=== PATIENT | female | born 1965 | race Caucasian/White ===

== ENCOUNTER → 2018-07-30 11:24 | Outpatient (CLI) | payer OTHER, SELFPAY ==
--- NOTE | 2018-07-30 | DI.MG.S_ITS ---
BILATERAL DIGITAL SCREENING MAMMOGRAM 3D/2D WITH CAD: 07/30/2018 CLINICAL: Routine screening. Comparison is made to exams dated: 07/26/2017 mammogram, 05/03/2016 mammogram - [facility], and 10/06/2014 mammogram - [facility]. The tissue of both breasts is heterogeneously dense. This may lower the sensitivity of mammography. Current study was also evaluated with a Computer Aided Detection (CAD) system. No significant masses, calcifications, or other findings are seen in either breast. There has been no significant interval change. IMPRESSION: NEGATIVE There is no mammographic evidence of malignancy. A 1 year screening mammogram is recommended. This exam was interpreted at Station ID: [id number]. NOTE: For mammograms, a report in lay terms will be sent to the patient. Approximately 15% of breast malignancies will not be visualized mammographically. In the management of a palpable breast mass, a negative mammogram must not discourage biopsy of a clinically suspicious lesion. Electronically Signed By: Gerardo vasquez/ediht:07/30/2018 12:08:28 letter sent: Normal Exam ACR BI-RADS Category 1: Negative 3341F
== END ==
PROVIDERS: Family Provider Family Medicine; PCP Family Medicine; Visit Provider Family Medicine
DX: Z12.31 Encounter for screening mammogram for malignant neoplasm of breast (principal)
CPT/HCPCS: 77063; 77067

== ENCOUNTER → 2019-10-26 10:47 | Outpatient (CLI) | payer OTHER, SELFPAY ==
--- NOTE | 2019-10-26 | DI.MG.S_ITS ---
BILATERAL DIGITAL SCREENING MAMMOGRAM 3D/2D WITH CAD: 10/26/2019 CLINICAL: Routine screening. Comparison is made to exams dated: 07/30/2018 mammogram, 07/26/2017 mammogram, and 05/03/2016 mammogram - [facility]. The tissue of both breasts is heterogeneously dense. This may lower the sensitivity of mammography. Current study was also evaluated with a Computer Aided Detection (CAD) system. No significant masses, calcifications, or other findings are seen in either breast. There has been no significant interval change. IMPRESSION: NEGATIVE There is no mammographic evidence of malignancy. A 1 year screening mammogram is recommended. This exam was interpreted at Station ID: [id number]. NOTE: For mammograms, a report in lay terms will be sent to the patient. Approximately 15% of breast malignancies will not be visualized mammographically. In the management of a palpable breast mass, a negative mammogram must not discourage biopsy of a clinically suspicious lesion. Electronically Signed By: Gerardo vasquez/edith:10/28/2019 08:01:36 letter sent: Normal Exam ACR BI-RADS Category 1: Negative 3341F
== END ==
PROVIDERS: Family Provider Family Medicine; PCP Family Medicine; Referring Provider Family Medicine; Visit Provider Family Medicine
DX: Z12.31 Encounter for screening mammogram for malignant neoplasm of breast (principal)
CPT/HCPCS: 77063; 77067

== ENCOUNTER → 2021-01-04 11:14 | Outpatient (CLI) | payer OTHER, SELFPAY ==
--- NOTE | 2021-01-04 | DI.MG.S_ITS ---
BILATERAL DIGITAL SCREENING MAMMOGRAM 3D/2D WITH CAD: 01/04/2021 CLINICAL: Routine screening. Comparison is made to exams dated: 10/26/2019 mammogram, 07/30/2018 mammogram, and 07/26/2017 mammogram - [facility]. The tissue of both breasts is heterogeneously dense. This may lower the sensitivity of mammography. Current study was also evaluated with a Computer Aided Detection (CAD) system. No significant masses, calcifications, or other findings are seen in either breast. There has been no significant interval change. IMPRESSION: NEGATIVE There is no mammographic evidence of malignancy. A 1 year screening mammogram is recommended. This exam was interpreted at Station ID: [id number]. NOTE: For mammograms, a report in lay terms will be sent to the patient. Approximately 15% of breast malignancies will not be visualized mammographically. In the management of a palpable breast mass, a negative mammogram must not discourage biopsy of a clinically suspicious lesion. Electronically Signed By: Rosibel gooden/edith:01/04/2021 12:26:41 letter sent: Normal Exam ACR BI-RADS Category 1: Negative 3341F
== END ==
PROVIDERS: Family Provider Family Medicine; PCP Physician Assistant; Referring Provider Physician Assistant; Visit Provider Physician Assistant
DX: Z12.31 Encounter for screening mammogram for malignant neoplasm of breast (principal)
CPT/HCPCS: 77063; 77067

== ENCOUNTER → 2021-07-14 10:10 | Outpatient (CLI) | payer OTHER, SELFPAY ==
[2021-07-14 18:39] LABS: Alanine Aminotransferase 20 IU/L (<35); Albumin 4.4 g/dL (3.5-5.0); Albumin Globulin Ratio 1.4 (1.0-2.8); Alkaline Phosphatase 81 U/L (38-126); Aspartate Aminotransferase 26 IU/L (14-36); BUN Creatinine Ratio 21.4 (6-22); Bilirubin Total 0.7 mg/dL (0.2-1.3); Blood Urea Nitrogen 12 mg/dL (7-17); Calcium 9.5 mg/dL (8.4-10.2); Carbon Dioxide 27 mmol/L (22-32); Chloride 103 mmol/L (98-107); Cholesterol 195 mg/dL (140-199); Estimated Glomerular Filt Rate > 60 mL/min (>60); Globulin 3.1 g/dL (1.7-4.1); Glucose 105 mg/dL (70-100); HDL Cholesterol 82 mg/dL (40-60); HEMOLYSIS < 15 (0-50); LDL Cholesterol Calculated 101 mg/dL (<100); Potassium 4.4 mmol/L (3.4-5.1); Sodium 140 mmol/L (137-145); Total Protein 7.5 g/dL (6.3-8.2); Triglycerides 59 mg/dL (35-150)
[2021-07-14 18:48] LABS: Hemoglobin A1C% w Est Avg Glu 5.4 % (4.0-6.0)
[2021-07-14 18:53] LABS: Add Manual Diff / Slide Review NO; Basophils Absolute Auto 0 /uL (0-100); Basophils Percent Auto 0.9 % (0-2); Eosinophils Absolute Auto 300 /uL (0-450); Hematocrit 40.2 % (36-46); Hemoglobin 13.7 g/dL (12.0-16.0); Lymphocytes Absolute Auto 2000 /uL (1100-4500); Lymphocytes Percent Auto 41.3 % (25-40); Mean Corpuscular Hemoglobin 30.9 PG (26-34); Mean Corpuscular Volume 90.8 fL (80-100); Monocytes Absolute Auto 600 /uL (0-900); Monocytes Percent Auto 12.6 % (3-14); Neutrophils Absolute Auto 1900 /uL (1500-7000); Neutrophils Percent Auto 39.2 % (50-75); Platelet Count 305 X10^3/uL (150-400); Red Blood Cell Count 4.42 X10^6/uL (4.0-5.2); Red Cell Distribution Width 12.8 % (11.6-14.8); White Blood Cell Count 4.8 X10^3/uL (4.5-11.0)
[2021-07-14 19:10] LABS: TSH w/ Reflex to FT4 3.67 uIU/mL (0.47-4.68)
== END ==
PROVIDERS: Family Provider Family Medicine; PCP Physician Assistant; Visit Provider Physician Assistant
DX: R53.83 Other fatigue (principal); R73.9 Hyperglycemia, unspecified; U09.9 Post COVID-19 condition, unspecified; Z13.6 Encounter for screening for cardiovascular disorders
CPT/HCPCS: 80053; 80061; 83036; 84443; 85025

== ENCOUNTER → 2021-08-24 10:13 | Outpatient (CLI) | payer OTHER, SELFPAY ==
[2021-08-24 19:33] LABS: Add Manual Diff / Slide Review NO; Basophils Absolute Auto 0 /uL (0-100); Basophils Percent Auto 0.7 % (0-2); Eosinophils Absolute Auto 300 /uL (0-450); Eosinophils Percent Auto 5.9 % (2-4); Hematocrit 40.1 % (36-46); Hemoglobin 13.8 g/dL (12.0-16.0); Lymphocytes Absolute Auto 2600 /uL (1100-4500); Lymphocytes Percent Auto 47.6 % (25-40); Mean Corpuscular HGB Conc 34.3 % (30-36); Mean Corpuscular Volume 90.3 fL (80-100); Monocytes Absolute Auto 700 /uL (0-900); Monocytes Percent Auto 12.3 % (3-14); Neutrophils Absolute Auto 1800 /uL (1500-7000); Neutrophils Percent Auto 33.5 % (50-75); Platelet Count 342 X10^3/uL (150-400); Red Blood Cell Count 4.44 X10^6/uL (4.0-5.2); Red Cell Distribution Width 13.1 % (11.6-14.8); White Blood Cell Count 5.4 X10^3/uL (4.5-11.0)
== END ==
PROVIDERS: Family Provider Family Medicine; PCP Physician Assistant; Visit Provider Physician Assistant
DX: R79.9 Abnormal finding of blood chemistry, unspecified (principal)
CPT/HCPCS: 85025

== ENCOUNTER → 2021-08-25 08:57 | Outpatient (CLI) | payer OTHER, SELFPAY ==
[2021-08-26 06:56] LABS: Fecal Immunochemical Test Negative (Negative)
== END ==
PROVIDERS: Family Provider Family Medicine; PCP Physician Assistant; Visit Provider Physician Assistant
DX: Z12.11 Encounter for screening for malignant neoplasm of colon (principal); Z80.0 Family history of malignant neoplasm of digestive organs
CPT/HCPCS: 82274

== ENCOUNTER → 2022-01-08 09:28 | Outpatient (CLI) | payer OTHER, SELFPAY ==
--- NOTE | 2022-01-08 | DI.MG.S_ITS ---
BILATERAL DIGITAL SCREENING MAMMOGRAM 3D/2D WITH CAD: 01/08/2022 CLINICAL: Routine screening. Comparison is made to exams dated: 01/04/2021 mammogram, 10/26/2019 mammogram, and 07/30/2018 mammogram - [facility]. Both breasts are heterogeneously dense, which may obscure small masses (category c / 51-75% glandular tissue). Current study was also evaluated with a Computer Aided Detection (CAD) system. No significant masses, calcifications, or other findings are seen in either breast. There has been no significant interval change. IMPRESSION: NEGATIVE There is no mammographic evidence of malignancy. A 1 year screening mammogram is recommended. Based on the Tyrer Cuzick model (a risk assessment model) the patient's lifetime risk is 9.6% and her 10 year risk is 2.9%. According to the ACR, ACS, and NCCN guidelines, an annual breast MRI exam along with mammogram is recommended if the patient's lifetime risk is 20% or greater. This exam was interpreted at Station ID: [id number]. NOTE: For mammograms, a report in lay terms will be sent to the patient. Approximately 15% of breast malignancies will not be visualized mammographically. In the management of a palpable breast mass, a negative mammogram must not discourage biopsy of a clinically suspicious lesion. Electronically Signed By: Ravinder rowland/edith:01/10/2022 08:22:35 letter sent: Normal Exam ACR BI-RADS Category 1: Negative 3341F
== END ==
PROVIDERS: Family Provider Family Medicine; PCP Physician Assistant; Referring Provider Physician Assistant; Visit Provider Physician Assistant
DX: Z12.31 Encounter for screening mammogram for malignant neoplasm of breast (principal)
CPT/HCPCS: 77063; 77067

== ENCOUNTER → 2022-07-05 08:49 | Outpatient (CLI) | payer OTHER, SELFPAY ==
[2022-07-05 19:53] LABS: Add Manual Diff / Slide Review NO; Basophils Absolute Auto 0 /uL (0-100); Basophils Percent Auto 0.7 % (0-2); Eosinophils Absolute Auto 300 /uL (0-450); Eosinophils Percent Auto 5.2 % (2-4); Hematocrit 38.3 % (36-46); Hemoglobin 13.2 g/dL (12.0-16.0); Lymphocytes Absolute Auto 2500 /uL (1100-4500); Lymphocytes Percent Auto 51.9 % (25-40); Mean Corpuscular HGB Conc 34.6 % (30-36); Mean Corpuscular Hemoglobin 31.2 PG (26-34); Mean Corpuscular Volume 90.1 fL (80-100); Monocytes Absolute Auto 600 /uL (0-900); Neutrophils Absolute Auto 1400 /uL (1500-7000); Neutrophils Percent Auto 29.2 % (50-75); Platelet Count 327 X10^3/uL (150-400); Red Blood Cell Count 4.25 X10^6/uL (4.0-5.2); Red Cell Distribution Width 12.4 % (11.6-14.8); White Blood Cell Count 4.8 X10^3/uL (4.5-11.0)
[2022-07-05 20:07] LABS: Alanine Aminotransferase 30 IU/L (<35); Albumin Globulin Ratio 1.3 (1.0-2.8); Alkaline Phosphatase 78 U/L (38-126); Aspartate Aminotransferase 28 IU/L (14-36); BUN Creatinine Ratio 18.3 (6-22); Bilirubin Total 0.5 mg/dL (0.2-1.3); Blood Urea Nitrogen 11 mg/dL (7-17); Carbon Dioxide 29 mmol/L (22-32); Chloride 103 mmol/L (98-107); Estimated Glomerular Filt Rate > 60 mL/min (>60); Globulin 3.1 g/dL (1.7-4.1); Glucose 89 mg/dL (70-100); HEMOLYSIS < 15 (0-50); Potassium 4.1 mmol/L (3.4-5.1); Sodium 139 mmol/L (137-145); Total Protein 7.1 g/dL (6.3-8.2)
[2022-07-05 20:39] LABS: TSH w/ Reflex to FT4 2.61 uIU/mL (0.47-4.68)
== END ==
PROVIDERS: Family Provider Family Medicine; PCP Physician Assistant; Visit Provider Physician Assistant
DX: R53.83 Other fatigue (principal); R79.9 Abnormal finding of blood chemistry, unspecified
CPT/HCPCS: 80053; 84443; 85025

== ENCOUNTER → 2022-07-26 11:37 | Outpatient (CLI) | payer OTHER, SELFPAY ==
[2022-07-26 20:26] LABS: Hematocrit 37.8 % (36-46); Mean Corpuscular HGB Conc 34.6 % (30-36); Mean Corpuscular Hemoglobin 31.4 PG (26-34); Mean Corpuscular Volume 90.9 fL (80-100); Platelet Count 295 X10^3/uL (150-400); Red Blood Cell Count 4.15 X10^6/uL (4.0-5.2); Red Cell Distribution Width 13.1 % (11.6-14.8); White Blood Cell Count 5.1 X10^3/uL (4.5-11.0)
[2022-07-26 21:30] LABS: Neutrophils Absolute Manual 2091 /uL (3000-5900); RBC Morphology Normal Morphology; Total Cells Counted 100
== END ==
PROVIDERS: Family Provider Family Medicine; PCP Physician Assistant; Visit Provider Physician Assistant
DX: R79.9 Abnormal finding of blood chemistry, unspecified (principal)
CPT/HCPCS: 85025

== ENCOUNTER → 2023-04-08 10:51 | Outpatient (CLI) | payer OTHER, SELFPAY ==
--- NOTE | 2023-04-08 | DI.MG.S_ITS ---
BILATERAL DIGITAL SCREENING MAMMOGRAM 3D/2D WITH CAD: 04/08/2023 CLINICAL: Routine screening. Comparison is made to exams dated: 01/08/2022 mammogram, 01/04/2021 mammogram, and 10/26/2019 mammogram - [facility]. Both breasts are heterogeneously dense, which may obscure small masses (category c / 51-75% glandular tissue). Current study was also evaluated with a Computer Aided Detection (CAD) system. No significant masses, calcifications, or other findings are seen in either breast. There has been no significant interval change. IMPRESSION: NEGATIVE There is no mammographic evidence of malignancy. A 1 year screening mammogram is recommended. Based on the Tyrer Cuzick model (a risk assessment model) the patient's lifetime risk is 9.5% and her 10 year risk is 3.1%. According to the ACR, ACS, and NCCN guidelines, an annual breast MRI exam along with mammogram is recommended if the patient's lifetime risk is 20% or greater. This exam was interpreted at Station ID: [id number]. NOTE: For mammograms, a report in lay terms will be sent to the patient. Approximately 15% of breast malignancies will not be visualized mammographically. In the management of a palpable breast mass, a negative mammogram must not discourage biopsy of a clinically suspicious lesion. Electronically Signed By: Mirela stoddard/edith:04/10/2023 13:19:28 letter sent: Normal Exam ACR BI-RADS Category 1: Negative 3341F
[2023-04-08 12:17] LABS: Hematocrit 37.7 % (36-46); Hemoglobin 12.8 g/dL (12.0-16.0); Mean Corpuscular Hemoglobin 30.9 PG (26-34); Platelet Count 295 X10^3/uL (150-400); Red Blood Cell Count 4.15 X10^6/uL (4.0-5.2); Red Cell Distribution Width 13.6 % (11.6-14.8); White Blood Cell Count 6.6 X10^3/uL (4.5-11.0)
[2023-04-08 12:49] LABS: Alanine Aminotransferase 16 IU/L (<35); Albumin 4.2 g/dL (3.5-5.0); Albumin Globulin Ratio 1.3 (1.0-2.8); Alkaline Phosphatase 80 U/L (38-126); Aspartate Aminotransferase 24 IU/L (14-36); BUN Creatinine Ratio 23.1 (6-22); Bilirubin Total 0.7 mg/dL (0.2-1.3); Blood Urea Nitrogen 12 mg/dL (7-17); Calcium 9.1 mg/dL (8.4-10.2); Carbon Dioxide 26 mmol/L (22-32); Chloride 104 mmol/L (98-107); Estimated Glomerular Filt Rate > 60 mL/min (>60); Globulin 3.3 g/dL (1.7-4.1); Glucose 97 mg/dL (70-100); HEMOLYSIS < 15 (0-50); Potassium 3.9 mmol/L (3.4-5.1); Sodium 138 mmol/L (137-145); Total Protein 7.5 g/dL (6.3-8.2)
[2023-04-08 13:23] LABS: Neutrophils Absolute Manual 3366 /uL (3000-5900); Total Cells Counted 100
[2023-04-08 13:40] LABS: RBC Morphology Normal Morphology
[2023-04-10 16:59] LABS: Hep C Virus Ab w/Reflex Quant NEGATIVE s/c (NEGATIVE)
== END ==
LOC: MAMMO 10:52
PROVIDERS: Family Provider Family Medicine; PCP Physician Assistant; Referring Provider Physician Assistant; Visit Provider Physician Assistant
DX: Z12.31 Encounter for screening mammogram for malignant neoplasm of breast (principal); R92.333 Mammographic heterogeneous density, bilateral breasts; D72.819 Decreased white blood cell count, unspecified; D70.9 Neutropenia, unspecified; Z11.59 Encounter for screening for other viral diseases
CPT/HCPCS: 36415; 77063; 77067; 80053; 85025; 86803

== ENCOUNTER → 2023-09-20 09:34 | Outpatient (CLI) | payer OTHER, SELFPAY ==
[2023-09-20 21:18] LABS: Cholesterol 234 mg/dL (140-199); Triglycerides 47 mg/dL (35-150)
[2023-09-20 21:42] LABS: HDL Cholesterol 113 mg/dL (40-60); LDL Cholesterol Calculated 112 mg/dL (<100)
[2023-09-20 21:44] LABS: TSH w/ Reflex to FT4 1.98 uIU/mL (0.47-4.68)
== END ==
PROVIDERS: Family Provider Family Medicine; PCP Family Medicine; Visit Provider Family Medicine
DX: Z13.29 Encounter for screening for other suspected endocrine disorder (principal); Z13.6 Encounter for screening for cardiovascular disorders; L85.3 Xerosis cutis
CPT/HCPCS: 80061; 84443

== ENCOUNTER → 2024-03-18 09:23 | Outpatient (CLI) | payer OTHER, SELFPAY ==
[2024-03-18 19:26] LABS: Alanine Aminotransferase 22 IU/L (<35); Albumin 4.3 g/dL (3.5-5.0); Albumin Globulin Ratio 1.4 (1.0-2.8); Alkaline Phosphatase 89 U/L (38-126); Aspartate Aminotransferase 32 IU/L (14-36); BUN Creatinine Ratio 22.4 (6-22); Blood Urea Nitrogen 15 mg/dL (7-17); Calcium 9.6 mg/dL (8.4-10.2); Carbon Dioxide 29 mmol/L (22-32); Chloride 103 mmol/L (98-107); Estimated Glomerular Filt Rate > 60 mL/min (>60); Globulin 3.1 g/dL (1.7-4.1); Glucose 107 mg/dL (70-100); HEMOLYSIS < 15 (0-50); Potassium 4.2 mmol/L (3.4-5.1); Sodium 137 mmol/L (137-145); Total Protein 7.4 g/dL (6.3-8.2)
[2024-03-18 19:42] LABS: Hemoglobin A1C% w Est Avg Glu 5.1 % (4.0-6.0)
== END ==
PROVIDERS: Family Provider Family Medicine; PCP Family Medicine; Visit Provider Family Medicine
DX: Z13.1 Encounter for screening for diabetes mellitus (principal); Z83.3 Family history of diabetes mellitus
CPT/HCPCS: 80053; 83036

== ENCOUNTER 2024-07-31 13:38 | Emergency (ER) | payer OTHER, SELFPAY ==
[2024-07-31] VITALS (11 sets, daily range): BP systolic 114–126; BP diastolic 71–84; PULSE 61–70; RESP 12–16; TEMP 36.6; O2SAT 91–99; BMI 22.4
--- NOTE | 2024-07-31 14:12 | EKG_ITS ---
[address] [address] Test Date: 2024-07-31 Pat Name: Daniella Pope Department: Room: Gender: Female [employer]: [employer] : 1965 Requested By: Order Number: [id number] Reading MD: Tommie Browne Measurements Intervals [place] Rate: 63 P: 27 MA: 160 QRS: 16 QRSD: 86 T: 24 QT: 424 QTc: 433 Interpretive Statements Normal sinus rhythm with sinus arrhythmia Electronically Signed On 07-31-2024 16:23:25 PDT by Tommie Browne
--- NOTE | 2024-07-31 14:30 | ED.SOB ---
HPI - SOB/Dyspnea General Chief Complaint: Shortness of Breath/Dyspnea Stated Complaint: sent by Dr alex, for heart issue Time Seen by Provider: 07/31/24 14:22 Source: patient Mode of arrival: Family Vehicle Limitations: no limitations History of Present Illness HPI Narrative: 59-year-old female sent over from PCP office today for concern for potential pulmonary embolism after starting estrogen progesterone patch for hormone replacement therapy on July 16. Patient reports shortness breath dyspnea on exertion that she did not have before since starting hormone replacement therapy. Patient was in a long-distance travel flight back in June going to [facility] to visit her daughter. She is now a social smoker former regular smoker. Patient denies leg pain leg swelling weight gain and active chest pain at this time. Other than what is stated 14 point review of system is negative. Related Data Home Medications Medication Instructions Recorded Confirmed estradiol 0.0375 mg/24 hr 1 patch transdermal 2XW 07/31/24 07/31/24 semiweekly transdermal patch (Lyllana) progesterone micronized 100 mg 100 mg PO QPM 07/31/24 07/31/24 capsule Previous Rx's Medication Instructions Recorded furosemide 40 mg tablet (Lasix) 40 mg PO DAILY #3 tabs 07/31/24 Allergies Allergy/AdvReac Type Severity Reaction Status Date / Time No Known Drug Allergies Allergy Verified 07/31/24 10:06 Review of Systems Review of Systems ROS Unobtainable: All systems reviewed & are unremarkable except as noted in HPI and below Patient History Medical History (Updated 07/31/24 @ 16:41 by Vamsi Camarena DO) PTSD (post-traumatic stress disorder) History of colon polyps Laceration of right lower leg (~09/06/17) Screening for lipid disorders Screening for HIV (human immunodeficiency virus) Encounter for screening for malignant neoplasm of cervix Family history of diabetes mellitus Surgical History (Updated 08/27/18 @ 11:45 by Dave Webster MD) Status post dilatation and curettage Status post surgery (03/28/14) Family History (Updated 07/05/21 @ 15:03 by Jazlyn Soriano CMA) Other Diabetes mellitus Social History (Updated 07/05/21 @ 15:07 by Jazlyn Soriano CMA) Smoking Status: Former smoker quit status: quit date established alcohol intake: current additional social history: tob: quit 1 yr ago etoh: 1-2 glasses every 3-4 dyas no other substances safe hot flashes at night. PTSD -- sister killed in a car accident that she herself was in. 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 No FHx of breast cancer 08/2023 Smoking Status: Former smoker Exam Narrative Exam Narrative: GENERAL: [59] year old patient appears stated age. Well-developed patient, in mild distress. HEAD: Atraumatic. Normocephalic. EYES: Pupils equal round and reactive. Extraocular motions intact. No scleral icterus. No injection or drainage. ENT: Nose without bleeding, purulent drainage. Throat without erythema, tonsillar hypertrophy or exudate. Airway patent. NECK: Trachea midline. Non tender CARDIOVASCULAR: Regular rate and rhythm without murmurs, gallops, or rubs. RESPIRATORY: Clear to auscultation. Breath sounds equal bilaterally. No wheezes, rales, or rhonchi. GASTROINTESTINAL: Abdomen soft, non-tender, nondistended. EXTREMITIES: No edema or joint tenderness. BACK: Nontender without deformity or crepitance. No flank tenderness. NEURO: AOx3. SKIN: No rash or erythema of visible areas Initial Vital Signs Initial Vital Signs: Vital Signs Temperature 97.9 F 07/31/24 14:11 Pulse Rate 68 07/31/24 14:11 Respiratory Rate 16 07/31/24 14:11 Blood Pressure 114/71 07/31/24 14:11 Pulse Oximetry 99 07/31/24 14:11 Oxygen Delivery Method Room Air 07/31/24 14:11 Course Orders Ordered: ED Orders 07/31/24 14:12 EKG-12 Lead Stat Measure peak expiratory flow STAT RT Consult Eval and Treat STAT 07/31/24 14:33 CT angio chest PE protocol Stat 07/31/24 15:00 Complete Blood Count AUTO DIFF Stat Comprehensive Metabolic Panel Stat Lactate (Lactic Acid) Stat NT-proBNP (BNP-Adult 18+) Stat Prothrombin Time INR Stat Troponin I Stat Vital Signs Vital signs: Vital Signs - 8 hr 07/31/24 14:11 Temperature 97.9 F Pulse Rate 68 Respiratory Rate 16 Blood Pressure 114/71 Pulse Oximetry 99 Oxygen Delivery Method Room Air MDM - SOB/Dyspnea Lab Data 07/31/24 15:00 07/31/24 15:00 Labs: Lab Results 07/31/24 Range/Units 15:00 WBC 5.8 (4.5-11.0) X10^3/uL RBC 4.41 (4.0-5.2) X10^6/uL Hgb 13.8 (12.0-16.0) g/dL Hct 40.8 (36-46) % MCV 92.6 (80-100) fL MCH 31.3 (26-34) PG MCHC 33.8 (30-36) % RDW 12.6 (11.6-14.8) % Plt Count 333 (150-400) X10^3/uL Neut % (Auto) 51.9 (50-75) % Lymph % (Auto) 33.2 (25-40) % [place] % (Auto) 11.6 (3-14) % Eos % (Auto) 2.6 (2-4) % Baso % (Auto) 0.7 (0-2) % Neut # (Auto) 3000 (5436-3192) /uL Lymph # (Auto) 1900 (7035-2586) /uL [place] # (Auto) 700 (0-900) /uL Eos # (Auto) 200 (0-450) /uL Baso # (Auto) 0 (0-100) /uL PT 11.4 (9.4-12.5) SECONDS INR 1.0 (0.9-1.3) Sodium 138 (137-145) mmol/L Potassium 4.1 (3.4-5.1) mmol/L Chloride 102 (98-107) mmol/L Carbon Dioxide 27 (22-32) mmol/L BUN 14 (7-17) mg/dL Creatinine 0.64 (0.52-1.04) mg/dL Estimated GFR > 60 (>60) mL/min BUN/Creatinine Ratio 21.9 (6-22) Glucose 100 H (70-99) mg/dL Lactate 0.7 (0.7-2.1) mmol/L Calcium 9.8 (8.4-10.2) mg/dL Total Bilirubin 0.6 (0.2-1.3) mg/dL AST 33 (14-36) IU/L ALT 26 (<35) IU/L Alkaline Phosphatase 71 (38-126) U/L Total Protein 7.6 (6.3-8.2) g/dL Albumin 4.5 (3.5-5.0) g/dL Globulin 3.1 (1.7-4.1) g/dL Albumin/Globulin Ratio 1.5 (1.0-2.8) Imaging Data Chest x-ray: Radiologist's Impression: [facility] XRay Report Signed Patient: Daniella Pope MR#: [id number] : 1965 Acct:[id number] Age/Sex: 59 / F Date of Service: 07/31/24 Loc: [facility] Accession Number: [id number] Procedure: XR chest 2V Ordering Provider: Dave Alex MD PROCEDURE: XR CHEST 2V INDICATIONS: ANDREWS onset after start HRT TECHNIQUE: 2 views of the chest were acquired. COMPARISON: [facility] ([facility]), , XR CHEST 2V, 07/05/2022, 8:30. FINDINGS AND IMPRESSION: No dense airspace disease. No pleural effusions. Normal heart size. Degenerative osseous changes. Dictated by: Sergei Christine M.D. on 07/31/2024 at 13:11 Approved by: Sergei Christine M.D. on 07/31/2024 at 13:12 CT scan - chest: Radiologist's Impression: [place] [address] CT Scan Report Signed Patient: Daniella Pope MR#: [id number] : 1965 Acct:[id number] Age/Sex: 59 / F Date of Service: 07/31/24 Loc: ED Accession Number: [id number] Procedure: CT angio chest PE protocol Ordering Provider: Vamsi Camarena D.O. PROCEDURE: CT ANGIO CHEST PE PROTOCOL INDICATIONS: chest pain/sob/ andrews/ started hrt TECHNIQUE: After the administration of intravenous contrast, 2 mm thick sections acquired from the pulmonary apices to the posterior costophrenic angles. 3-dimensional maximum intensity projection (MIP) coronal and sagittal reformats were then acquired through the thorax. For radiation dose reduction, the following was used: automated exposure control, adjustment of mA and/or kV according to patient size. COMPARISON: None. FINDINGS: Image quality: Diagnostic. Pulmonary arteries: Pulmonary arteries are prominent in size, and demonstrate no intraluminal filling defects to suggest central pulmonary embolism. Lower Neck: No enlarged lymph nodes. Thyroid: No thyroid nodules which require sonographic follow up, per consensus guidelines. Axillae: No enlarged lymph nodes. Chest Wall: Unremarkable. Bones: No aggressive appearing bony lesions. Lungs and Pleura: No pneumothorax or pleural effusions. 3 mm solid nodule is seen in posterior lateral aspect of right upper lobe adjacent to the major fissure series 5, image 104. No consolidation or suspicious nodules. Dependent atelectasis in posterior aspect of bilateral lung vale are seen. Subtle hazy ground-glass opacities are noted in posterior aspect of bilateral lower lobes. Heart: Heart size is enlarged. No pericardial effusion. Thoracic Vessels: No aortic aneurysm. Mediastinum and Trice: No enlarged lymph nodes. Esophagus: No wall thickening. No hiatal hernia. Upper Abdomen: Visualized upper abdomen solid organs and bowel loops appear normal. IMPRESSION: 1. No pulmonary embolus. No thoracic aortic aneurysm or gross dissection. Prominent size of main pulmonary artery which can be seen associated with pulmonary vascular hypertension. 2. Dependent atelectasis and suggestion of mild pulmonary edema in posterior aspect of bilateral lower lobes. No focal infiltrate, pleural effusion or pneumothorax. 3 mm solid nodule is seen in right upper lobe as above, likely represent benign process. Follow-up CT chest in 12 months can be done for evaluation of stability. 3. No mediastinal or hilar lymphadenopathy. Cardiomegaly, no pericardial effusion. Dictated by: Chau Nuno M.D. on 07/31/2024 at 15:49 Approved by: Chau Nuno M.D. on 07/31/2024 at 15:57 ECG Data Interpretation: NSR HR 63 OR 160 QRS [address]-t wave change No previous EKG to compare against MDM Narrative Medical decision making narrative: All lab work, vital signs, nurse triage note, medication list and previous ER visits all reviewed. CT scan showed no PE no thoracic aortic aneurysm or gross dissection but there was prominent size of the main pulmonary artery which can be seen with pulmonary vascular hypertension. Dependent atelectasis and suggestive of mild pulmonary edema in the posterior aspect of bilateral lower lobes. No focal infiltrates pleural effusion or pneumothorax. 3 mm solid nodule seen in the right upper lobe likely representing a a benign process but to follow up with a CT chest in 12 months. No mediastinal hilar lymphadenopathy part but cardiomegaly but no green party pericardial effusion. Differential diagnosis include PE, dissection, aneursym, pneumonia, and pneumothorax. Patient given Lasix here and on discharge home then to follow up with PCP in 1-2 weeks for re-evaluation Discharge Plan Departure Patient Disposition: Home Clinical Impression: Hypertensive pulmonary vascular disease, Lung nodule Instructions: DI for Pulmonary Arterial Hypertension-Adult Activity Restrictions/Additional Instructions: Return with new or worsening symptoms. Please follow up with your PCP in 1-2 weeks regarding pulmonary vascular hypertension and lung nodule in the right upper lobe. And to take medicines as directed. Prescriptions: New furosemide [Lasix] 40 mg tablet 40 mg PO DAILY Qty: 3 0RF No Action estradiol [Lyllana] 0.0375 mg/24 hr patch semiweekly 1 patch transdermal 2XW Rx Instructions: apply 1 patch for 3 days alternating with 1 patch for 4 days each week for 3 wks per 4-wk cycle progesterone micronized 100 mg capsule 100 mg PO QPM Rx Instructions: off 7 days; repeat cycle Referrals: Devora Coles MD [Primary Care Provider] - Stand Alone Forms: Patient Portal/API/Survey
--- NOTE | 2024-07-31 14:33 | DI.CT.S_ITS ---
PROCEDURE: CT ANGIO CHEST PE PROTOCOL INDICATIONS: chest pain/sob/ andrews/ started hrt TECHNIQUE: After the administration of intravenous contrast, 2 mm thick sections acquired from the pulmonary apices to the posterior costophrenic angles. 3-dimensional maximum intensity projection (MIP) coronal and sagittal reformats were then acquired through the thorax. For radiation dose reduction, the following was used: automated exposure control, adjustment of mA and/or kV according to patient size. COMPARISON: None. FINDINGS: Image quality: Diagnostic. Pulmonary arteries: Pulmonary arteries are prominent in size, and demonstrate no intraluminal filling defects to suggest central pulmonary embolism. Lower Neck: No enlarged lymph nodes. Thyroid: No thyroid nodules which require sonographic follow up, per consensus guidelines. Axillae: No enlarged lymph nodes. Chest Wall: Unremarkable. Bones: No aggressive appearing bony lesions. Lungs and Pleura: No pneumothorax or pleural effusions. 3 mm solid nodule is seen in posterior lateral aspect of right upper lobe adjacent to the major fissure series 5, image 104. No consolidation or suspicious nodules. Dependent atelectasis in posterior aspect of bilateral lung vale are seen. Subtle hazy ground-glass opacities are noted in posterior aspect of bilateral lower lobes. Heart: Heart size is enlarged. No pericardial effusion. Thoracic Vessels: No aortic aneurysm. Mediastinum and Trice: No enlarged lymph nodes. Esophagus: No wall thickening. No hiatal hernia. Upper Abdomen: Visualized upper abdomen solid organs and bowel loops appear normal. IMPRESSION: 1. No pulmonary embolus. No thoracic aortic aneurysm or gross dissection. Prominent size of main pulmonary artery which can be seen associated with pulmonary vascular hypertension. 2. Dependent atelectasis and suggestion of mild pulmonary edema in posterior aspect of bilateral lower lobes. No focal infiltrate, pleural effusion or pneumothorax. 3 mm solid nodule is seen in right upper lobe as above, likely represent benign process. Follow-up CT chest in 12 months can be done for evaluation of stability. 3. No mediastinal or hilar lymphadenopathy. Cardiomegaly, no pericardial effusion. Dictated by: Chau Nuno M.D. on 07/31/2024 at 15:49 Approved by: Chau Nuno M.D. on 07/31/2024 at 15:57
[2024-07-31 15:11] LABS: Add Manual Diff / Slide Review NO; Basophils Absolute Auto 0 /uL (0-100); Basophils Percent Auto 0.7 % (0-2); Eosinophils Absolute Auto 200 /uL (0-450); Eosinophils Percent Auto 2.6 % (2-4); Hematocrit 40.8 % (36-46); Hemoglobin 13.8 g/dL (12.0-16.0); Lymphocytes Absolute Auto 1900 /uL (1100-4500); Lymphocytes Percent Auto 33.2 % (25-40); Mean Corpuscular HGB Conc 33.8 % (30-36); Mean Corpuscular Hemoglobin 31.3 PG (26-34); Mean Corpuscular Volume 92.6 fL (80-100); Monocytes Absolute Auto 700 /uL (0-900); Monocytes Percent Auto 11.6 % (3-14); Neutrophils Absolute Auto 3000 /uL (1500-7000); Neutrophils Percent Auto 51.9 % (50-75); Platelet Count 333 X10^3/uL (150-400); Red Blood Cell Count 4.41 X10^6/uL (4.0-5.2); Red Cell Distribution Width 12.6 % (11.6-14.8); White Blood Cell Count 5.8 X10^3/uL (4.5-11.0)
[2024-07-31 15:19] LABS: Prothrombin Time 11.4 SECONDS (9.4-12.5)
[2024-07-31 15:27] LABS: Lactate (Lactic Acid) 0.7 mmol/L (0.7-2.1)
[2024-07-31 15:28] LABS: Alanine Aminotransferase 26 IU/L (<35); Albumin 4.5 g/dL (3.5-5.0); Albumin Globulin Ratio 1.5 (1.0-2.8); Alkaline Phosphatase 71 U/L (38-126); Aspartate Aminotransferase 33 IU/L (14-36); BUN Creatinine Ratio 21.9 (6-22); Bilirubin Total 0.6 mg/dL (0.2-1.3); Blood Urea Nitrogen 14 mg/dL (7-17); Calcium 9.8 mg/dL (8.4-10.2); Carbon Dioxide 27 mmol/L (22-32); Chloride 102 mmol/L (98-107); Estimated Glomerular Filt Rate > 60 mL/min (>60); Globulin 3.1 g/dL (1.7-4.1); Glucose 100 mg/dL (70-99); HEMOLYSIS 18 (0-50); Potassium 4.1 mmol/L (3.4-5.1); Sodium 138 mmol/L (137-145); Total Protein 7.6 g/dL (6.3-8.2)
[2024-07-31 15:40] LABS: NT-proBNP (BNP-Adult 18+) 42 pg/mL (<125); Troponin I < 0.012 ng/mL (0.01-0.034)
[2024-07-31] MEDS: FUROSEMIDE 40 MG/4 ML VIAL IV (17:17)
== END 2024-07-31 17:37 | disposition home or self-care (01) ==
PROVIDERS: Emergency Provider Family Medicine; Family Provider Family Medicine; PCP Family Medicine
DX: I27.20 Pulmonary hypertension, unspecified (principal); R91.1 Solitary pulmonary nodule; R07.9 Chest pain, unspecified
CPT/HCPCS: 36415; 71275; 80053; 83605; 83880; 84484; 85025; 85610; 93005; 96374; 99284; J1938

== ENCOUNTER → 2024-08-09 08:26 | Outpatient (CLI) | payer OTHER, SELFPAY ==
--- NOTE | 2024-08-09 08:27 | DI.MG.S_ITS ---
MM screening mammo BI: 08/09/2024. BI-RADS: 1 CLINICAL: 59-year old female for bilateral screening mammogram. Tyrer-Cuzick lifetime risk of 6.2%. No personal or first-degree family history of breast cancer. PRIOR EXAMS 04/08/2023, 01/08/2022, 01/04/2021, 10/26/2019, 07/30/2018, 07/26/2017, 05/03/2016, 10/06/2014. MAMMOGRAPHY TECHNIQUE: 2D and 3D (tomosynthesis) digital mammographic views obtained, with additional images as needed for full coverage. Current study was also evaluated with a Computer Aided Detection (CAD) system. DENSITY C. The breasts are heterogeneously dense, which may obscure small masses. MAMMOGRAPHY FINDINGS Bilateral: No suspicious mass, asymmetry, microcalcification, or other abnormality seen. IMPRESSION: * No evidence of malignancy. RECOMMENDATIONS Bilateral * Annual screening mammography. OVERALL ASSESSMENT CATEGORY BI-RADS-1: Negative. The [employer] recommends annual screening mammography beginning at age 40 for women with average risk of breast cancer. ELECTRONICALLY SIGNED: Gerardo Wilks M.D. on 08/09/2024 at 02:00:10 PM PT Interpreting Station ID: [id number]
== END ==
PROVIDERS: Family Provider Family Medicine; PCP Family Medicine; Referring Provider Family Medicine; Visit Provider Family Medicine
DX: Z12.31 Encounter for screening mammogram for malignant neoplasm of breast (principal); R92.333 Mammographic heterogeneous density, bilateral breasts
CPT/HCPCS: 77063; 77067

== ENCOUNTER → 2024-08-20 06:46 | Outpatient (CLI) | payer OTHER, SELFPAY ==
--- NOTE | 2024-08-20 06:47 | DI.ECHO.S_ITS ---
[facility]+ [facility] : : [address] : : [place] : : [address] : : Phone: [phone] Echocardiogram Report + + :Name: SANA REED Study Date: 08/20/2024 Height: 61 in : :Hospital ReadingLocation: Weight: 119 lb : : Gender: Female BSA: 1.5 m2 : :: 1965 Age: 59 yrs BP: 109/76 mmHg: :Reason For Study: DYPSNEA ON EXERTION : :Ordering Physician: YELITZA, : :LEONIDAS Performed By: Walter Shepherd : :Referring: LEONIDAS TORRE : + + Interpretation Summary Normal sinus rhythm. Normal LV size, wall thickness, wall motion and LV systolic function. EF is 60-65%. Moderate LA enlargement; otherwise normal chamber sizes. There is significant bowing of the interatrial septum towards the right atrium consistent with elevated LA pressure. No shunt based on color flow Doppler. No significant valvular abnormalities. No etiology of dyspnea identified. No prior study available for comparison. Procedure: A two-dimensional transthoracic echocardiogram with color flow and Doppler was performed. The study quality was technically good. There is no prior echocardiogram noted for this patient. The patient was in normal sinus rhythm during the exam. Left Ventricle: The left ventricle is normal in size. There is normal left ventricular wall thickness. There is no ventricular septal defect visualized. The ejection fraction is estimated to be 60-65%. There are no focal wall motion abnormalities. Diastolic parameters suggest a relaxation abnormality of the left ventricle, consistent with probable normal filling pressures. Right Ventricle: The right ventricle is normal in size and function. Atria: The left atrium is moderately dilated. Right atrial size is normal. The interatrial septum bows toward right atrium consistent with elevated left atrial pressure. Mitral Valve: The mitral valve leaflets appear normal. There is no evidence of stenosis, fluttering, or prolapse. There is trace mitral regurgitation. Aortic Valve: The aortic valve is trileaflet. The aortic valve opens well. No aortic regurgitation is present. Tricuspid Valve: The tricuspid valve leaflets are thin and pliable. There is trace tricuspid regurgitation. Pulmonic Valve: The pulmonic valve is not well seen, but is grossly normal. There is trace pulmonic regurgitation. Great Vessels: The aortic root is mildly dilated. The dimensions of the ascending aorta are normal. The pulmonary artery is normal size. The IVC is of normal diameter and collapses greater than 50% with a sniff. This suggests a low right atrial pressure of 3 mm Hg. Pericardium/ Pleura There is no pericardial effusion. There is no pleural effusion. MMode/2D Measurements & Calculations LVIDd: 4.8 cm LVOT diam: 2.0 cm LVIDs: 3.6 cm Ao root diam: 3.7 cm FS: 25.5 % asc Aorta Diam: 3.4 cm EPSS: 0.37 cm IVSd: 0.81 cm LVPWd: 0.75 cm LV hudson. diameter/BSA (cm/m^2): 3.2 LV sys. diameter/BSA (cm/m^2): 2.4 LA A2 area: 18.7 cm2 RA long axis: 4.6 cm LA A4 area: 20.1 cm2 RA area: 13.7 cm2 LA length (vol): 4.8 cm RA vol: 34.1 ml LA vol: 66.1 ml RA : 22.5 ml/m2 LA vol index: 43.6 ml/m2 IVC diam: 1.4 cm RVD1 (basal): 3.8 cm RVD2 (mid): 3.1 cm TAPSE: 2.9 cm Doppler Measurements & Calculations Ao V2 max: 118.8 cm/sec LVOT Max Bladimir: 76.7 cm/sec Ao V2 mean: 83.1 cm/sec LV V1 max P.4 mmHg Ao max P.6 mmHg LV V1 VTI: 17.6 cm Ao mean P.1 mmHg POONAM(I,D): 2.0 cm2 Ao V2 VTI: 26.6 cm POONAM(V,D): 2.0 cm2 sev ratio: 0.66 POONAM indexed to BSA (cm^2/m^2): 1.3 MV E max bladimir: 51.1 cm/sec TR max bladimir: 223.9 cm/sec MV A max bladimir: 64.7 cm/sec TR max P.1 mmHg MV E/A: 0.79 PA V2 max: 69.5 cm/sec Med Peak E' Bladimir: 7.1 cm/sec PA V2 mean: 43.7 cm/sec E/E' med: 7.1 PA mean P.89 mmHg Lat Peak E' Bladimir: 8.2 cm/sec PA pr(Accel): 46.5 mmHg E/E' lat: 6.3 E/e' average: 6.7 MV dec time: 0.11 sec SV(LVOT): 53.2 ml Electronically signed by: Alva Javed M.D. on [place] Physician:08/20/2024 11:42 PM
== END ==
PROVIDERS: PCP Family Medicine; Referring Provider Family Medicine; Visit Provider Family Medicine
DX: I77.89 Other specified disorders of arteries and arterioles (principal); R06.09 Other forms of dyspnea; I27.20 Pulmonary hypertension, unspecified; R53.83 Other fatigue
CPT/HCPCS: 93306

== ENCOUNTER 2024-09-19 08:10 | Emergency (ER) | payer OTHER, SELFPAY ==
--- NOTE | 2024-09-19 08:14 | ED.CHESTPAIN ---
HPI - Chest Pain General Chief Complaint: Chest Pain Stated Complaint: chest pain and upper back left arm pain Time Seen by Provider: 09/19/24 08:14 History of Present Illness HPI narrative: 51-year-old female history of hypertension, PTSD, allergies, polyps, family history of colon cancer, fatigue due to COVID, GERD, elevated blood sugars, neutropenia presents with epigastric midsternal chest pain to the back woke her up this morning at about 2:30 a.m. sharp constant pain rated as 4/10 at this time. She had a bowel movement earlier today denies nausea vomiting diarrhea constipation did report cough and congestion earlier in the week. She did take a Pepcid prior to arrival this morning and had [place] food last night. Other than what is stated 14 point review of system is negative. Related Data Previous Rx's ?Medication ?Instructions ?Recorded pantoprazole 40 mg tablet,delayed 40 mg PO DAILY #30 tabs 09/19/24 release (Protonix) Allergies Allergy/AdvReac Type Severity Reaction Status Date / Time No Known Drug Allergies Allergy Verified 09/09/24 07:59 Review of Systems Review of Systems ROS Unobtainable: All systems reviewed & are unremarkable except as noted in HPI and below Patient History Medical History (Updated 09/19/24 @ 11:30 by Vamsi Camarena DO) PTSD (post-traumatic stress disorder) History of colon polyps Laceration of right lower leg (~09/06/17) Screening for lipid disorders Screening for HIV (human immunodeficiency virus) Encounter for screening for malignant neoplasm of cervix Family history of diabetes mellitus Surgical History (Updated 08/27/18 @ 11:45 by Dave Webster MD) Status post dilatation and curettage Status post surgery (03/28/14) Family History (Updated 07/05/21 @ 15:03 by Jazlyn Soriano CMA) Other Diabetes mellitus Social History (Updated 07/05/21 @ 15:07 by Jazlyn Soriano CMA) Smoking Status: Former smoker quit status: quit date established alcohol intake: current additional social history: tob: quit 1 yr ago etoh: 1-2 glasses every 3-4 dyas no other substances safe hot flashes at night. PTSD -- sister killed in a car accident that she herself was in. 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 No FHx of breast cancer 08/2023 Exam Narrative Exam Narrative: GENERAL: [59] year old patient appears stated age. Well-developed patient, in mild distress. HEAD: Atraumatic. Normocephalic. EYES: Pupils equal round and reactive. Extraocular motions intact. No scleral icterus. No injection or drainage. ENT: Nose without bleeding, purulent drainage. Throat without erythema, tonsillar hypertrophy or exudate. Airway patent. NECK: Trachea midline. Non tender CARDIOVASCULAR: Regular rate and rhythm without murmurs, gallops, or rubs. RESPIRATORY: Clear to auscultation. Breath sounds equal bilaterally. No wheezes, rales, or rhonchi. GASTROINTESTINAL: Abdomen soft, non-tender, nondistended. EXTREMITIES: No edema or joint tenderness. BACK: Nontender without deformity or crepitance. No flank tenderness. NEURO: AOx3. SKIN: No rash or erythema of visible areas Initial Vital Signs Initial Vital Signs: Vital Signs Temperature 98.2 F 09/19/24 08:19 Pulse Rate 74 09/19/24 08:19 Respiratory Rate 16 09/19/24 08:19 Blood Pressure 158/86 H 09/19/24 08:19 Pulse Oximetry 98 09/19/24 08:19 Oxygen Delivery Method Room Air 09/19/24 08:19 Scores HEART Score Heart Score history: Slightly Suspicious Heart Score EKG: Normal Heart Score Age: 45-64 years old Heart Score risk factors: No known risk factors Heart Score troponin: < or = to normal limit Heart Score Total: 1 Course Orders Ordered: ED Orders 09/19/24 08:25 XR chest 1V Stat EKG-12 Lead Stat 09/19/24 08:32 CT abdomen pelvis w con Stat 09/19/24 08:43 Complete Blood Count AUTO DIFF Stat Comprehensive Metabolic Panel Stat Lipase Stat Magnesium Stat NT-proBNP (BNP-Adult 18+) Stat PTT Partial Thromboplastin Arnav Stat Prothrombin Time INR Stat Troponin & CK Cardiac Panel Stat 09/19/24 09:36 US abdomen limited Stat 09/19/24 10:47 Troponin I Stat Discontinued Medications Aspirin (Aspirin 81 Mg Chew Tab) 324 mg PO NOW ONE Stop: 09/19/24 08:26 Last Admin: 09/19/24 08:56 Dose: 324 mg Documented By: MIHAI Vital Signs Vital signs: Vital Signs - 8 hr 09/19/24 08:19 09/19/24 10:12 Temperature 98.2 F Pulse Rate 74 63 Respiratory Rate 16 14 Blood Pressure 158/86 H 121/78 Pulse Oximetry 98 99 Oxygen Delivery Method Room Air Room Air MDM - Chest Pain Lab Data 09/19/24 08:43 09/19/24 08:43 Labs: Lab Results 09/19/24 Range/Units 08:43 WBC 9.0 (4.5-11.0) X10^3/uL RBC 4.19 (4.0-5.2) X10^6/uL Hgb 13.2 (12.0-16.0) g/dL Hct 38.9 (36-46) % MCV 92.9 (80-100) fL MCH 31.5 (26-34) PG MCHC 33.9 (30-36) % RDW 13.1 (11.6-14.8) % Plt Count 313 (150-400) X10^3/uL Neut % (Auto) 63.9 (50-75) % Lymph % (Auto) 21.8 L (25-40) % [place] % (Auto) 11.2 (3-14) % Eos % (Auto) 2.5 (2-4) % Baso % (Auto) 0.6 (0-2) % Neut # (Auto) 5800 (7407-4159) /uL Lymph # (Auto) 2000 (8418-8919) /uL [place] # (Auto) 1000 H (0-900) /uL Eos # (Auto) 200 (0-450) /uL Baso # (Auto) 0 (0-100) /uL PT 11.1 (9.4-12.5) SECONDS INR 1.0 (0.9-1.3) APTT 32 (25.1-36.5) SECONDS Sodium 136 L (137-145) mmol/L Potassium 4.2 (3.4-5.1) mmol/L Chloride 104 (98-107) mmol/L Carbon Dioxide 23 (22-32) mmol/L BUN 14 (7-17) mg/dL Creatinine 0.70 (0.52-1.04) mg/dL Estimated GFR > 60 (>60) mL/min BUN/Creatinine Ratio 20.0 (6-22) Glucose 107 H (70-99) mg/dL Calcium 9.5 (8.4-10.2) mg/dL Magnesium 2.0 (1.6-2.3) mg/dL Total Bilirubin 0.5 (0.2-1.3) mg/dL AST 37 H (14-36) IU/L ALT 23 (<35) IU/L Alkaline Phosphatase 104 (38-126) U/L Total Creatine Kinase 470 H (30-135) U/L Troponin I < 0.012 (0.01-0.034) ng/mL NT-Pro-B Natriuret Pep 40 (<125) pg/mL Total Protein 7.7 (6.3-8.2) g/dL Albumin 4.5 (3.5-5.0) g/dL Globulin 3.2 (1.7-4.1) g/dL Albumin/Globulin Ratio 1.4 (1.0-2.8) Lipase 90 (23-300) U/L Imaging Data Chest x-ray: Radiologist's Impression: [address] [address] XRay Report Signed Patient: Daniella Pope MR#: [id number] : 1965 Acct:[id number] Age/Sex: 59 / F Date of Service: 09/19/24 Loc: ED Accession Number: [id number] Procedure: XR chest 1V Ordering Provider: Vamsi Camarena D.O. PROCEDURE: XR CHEST 1V INDICATIONS: Chest Pain TECHNIQUE: One view of the chest was acquired. COMPARISON: [facility] ([facility]), CR, XR CHEST 2V, 07/31/2024, 10:40. FINDINGS: Surgical changes and devices: None. Lungs and pleura: Lungs are clear. No pleural effusions or pneumothorax. Mediastinum: Mediastinal contours appear normal. Heart size is normal. Bones and chest wall: No suspicious bony lesions. Overlying soft tissues appear unremarkable. IMPRESSION: No acute cardiopulmonary abnormality is seen. CT scan - abdomen/pelvis: Radiologist's Impression: [address] [address] [address] Scan Report Signed Patient: Daniella Pope MR#: [id number] : 1965 Acct:[id number] Age/Sex: 59 / F Date of Service: 09/19/24 Loc: ED Accession Number: [id number] Procedure: CT abdomen pelvis w con Ordering Provider: Vamsi Camarena D.O. PROCEDURE: CT ABDOMEN PELVIS W CON INDICATIONS: epigastric pain radiating to back TECHNIQUE: After the administration of intravenous contrast, axial sections acquired from the lung bases to the pubic symphysis. Coronal and sagittal reformats were performed. For radiation dose reduction, the following was used: automated exposure control, adjustment of mA and/or kV according to patient size. COMPARISON: None. FINDINGS: Image quality: Diagnostic. Lower Chest: No esophageal wall edema and thickening concerning for esophagitis. Heart size is normal, no pericardial effusion. Bilateral lung bases are clear. ABDOMEN: Liver: No solid mass. Small well-circumscribed hypodensities are seen scattered in liver parenchyma. Gallbladder: Contracted gallbladder. Questionable gallbladder wall thickening. No calcified gallstones. Biliary ducts: No biliary dilation. Pancreas: No ductal dilation. Spleen: Size is within normal limits. Adrenal Glands: No adrenal nodules. Kidneys and Ureters: No hydronephrosis. No solid mass. No complex renal cystic lesion which requires follow up. Stomach and Bowel: There is distal gastric wall thickening particularly involving gastric pylorus. Proximal duodenal wall thickening is also seen. Mild fluid filling of the small bowel loops throughout abdomen with wall enhancement and borderline thickening concerning for enteritis. No colonic wall thickening. No abscess collection. Peritoneum: No abnormal intraperitoneal fluid. No free air. Ventral Wall: No significant ventral hernia. Abdominal Nodes: No retroperitoneal or mesenteric adenopathy by size criteria. Vessels: Aorta and inferior vena cava are normal in size. PELVIS: Pelvic Organs: Unremarkable. Bladder: No bladder wall thickening, accounting for underdistention. Pelvic Nodes: No enlarged lymph nodes. Miscellaneous: No inguinal hernias are seen. Bones: No aggressive osseous abnormality. IMPRESSION: 1. Finding is concerning for distal gastritis and enteritis. No evidence of bowel obstruction. No colonic wall thickening. No free fluid or free air. 2. Contracted gallbladder. No calcified gallstones. Questionable gallbladder wall thickening. Early acute cholecystitis cannot be entirely excluded, clinical correlation is recommended. No gross biliary ductal dilatation. 3. Distal esophageal wall thickening suggestive of mild esophagitis. US - abdomen: Radiologist's Impression: [address] [address] Ultrasound Report Signed Patient: Daniella Pope MR#: [id number] : 1965 Acct:[id number] Age/Sex: 59 / F Date of Service: 09/19/24 Loc: ED Accession Number: [id number] Procedure: US abdomen limited Ordering Provider: Vamsi Camarena D.O. PROCEDURE: US ABDOMEN LIMITED INDICATIONS: epigastric pain TECHNIQUE: Real-time scanning was performed of the abdominal and retroperitoneal organs, with image documentation. COMPARISON: None. FINDINGS: Liver: Liver is normal in size and homogeneous in echotexture. Gallbladder: There is no gallstones. Borderline gallbladder wall thickening. No pericholecystic fluid. No sonographic Banks's sign. Biliary ducts: Intrahepatic bile ducts are non-dilated. Extrahepatic bile duct caliber measures 3.7 mm. Normal is 6-7 mm or less in diameter, or 10 mm or less post-cholecystectomy. Pancreas: Visualized portions of the pancreas are sonographically normal. Miscellaneous: No free abdominal fluid. IMPRESSION: No gallstones. No sonographic evidence of acute cholecystitis. Questionable gallbladder wall thickening likely due to contraction. No biliary ductal dilatation. ECG Data Interpretation: Sinus David HR 58 [place] 168 QRS [address]-t wave change Unchanged from 07/31/24 MDM Narrative Medical decision making narrative: Vital signs, nurse triage note, medication list, previous ER visits, and all imaging studies reviewed. EKG shows sinus bradycardia heart rate [address] T wave changes. Troponin 2 sets normal. Chest x-ray showed no acute process. CT abdomen and pelvis showed findings concerning for distal gastritis and enteritis. No evidence of bowel obstruction no colonic wall thickening. No free fluid or free air. Contracted gallbladder. No calcified gallstone. Questionable gallbladder wall thickening. Distal esophageal wall thickening suggestive of mild esophagitis. Ultrasound showed no gallstones no evidence of acute cholecystitis questionable wall thickening likely due to contraction no ductal dilatation. Patient given Protonix here and on DC home. Differential diagnosis includes STEMI NSTEMI unstable angina GERD pancreatitis ulcer cholecystitis. Discharge Plan Departure Patient Disposition: Home Clinical Impression: Gastritis Qualifiers: Gastritis type: superficial Chronicity: acute Gastritis bleeding: without bleeding Qualified Code(s): K29.00 - Acute gastritis without bleeding Instructions: DI for Gastritis Activity Restrictions/Additional Instructions: Return with new or worsening symptoms. Take your medicines as directed. Follow up with PCP in 2-4 weeks if no improvement in symptoms. Prescriptions: New pantoprazole [Protonix] 40 mg tablet,delayed release (DR/EC) 40 mg PO DAILY Qty: 30 0RF Referrals: Devora Coles MD [Primary Care Provider, Family Practice] Stand Alone Forms: Patient Portal/API
[2024-09-19 08:19] VITALS: BP 158/86; PULSE 74; RESP 16; TEMP 36.8; O2SAT 98; BMI 22.4
--- NOTE | 2024-09-19 08:25 | EKG_ITS ---
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
--- NOTE | 2024-09-19 08:25 | DI.RAD.S_ITS ---
PROCEDURE: XR CHEST 1V INDICATIONS: Chest Pain TECHNIQUE: One view of the chest was acquired. COMPARISON: [facility] ([facility]), CR, XR CHEST 2V, 07/31/2024, 10:40. FINDINGS: Surgical changes and devices: None. Lungs and pleura: Lungs are clear. No pleural effusions or pneumothorax. Mediastinum: Mediastinal contours appear normal. Heart size is normal. Bones and chest wall: No suspicious bony lesions. Overlying soft tissues appear unremarkable. IMPRESSION: No acute cardiopulmonary abnormality is seen. Dictated by: Conor Hoffmann M.D. on 09/19/2024 at 8:56 Approved by: Conor Hoffmann M.D. on 09/19/2024 at 8:56
--- NOTE | 2024-09-19 08:32 | DI.CT.S_ITS ---
PROCEDURE: CT ABDOMEN PELVIS W CON INDICATIONS: epigastric pain radiating to back TECHNIQUE: After the administration of intravenous contrast, axial sections acquired from the lung bases to the pubic symphysis. Coronal and sagittal reformats were performed. For radiation dose reduction, the following was used: automated exposure control, adjustment of mA and/or kV according to patient size. COMPARISON: None. FINDINGS: Image quality: Diagnostic. Lower Chest: No esophageal wall edema and thickening concerning for esophagitis. Heart size is normal, no pericardial effusion. Bilateral lung bases are clear. ABDOMEN: Liver: No solid mass. Small well-circumscribed hypodensities are seen scattered in liver parenchyma. Gallbladder: Contracted gallbladder. Questionable gallbladder wall thickening. No calcified gallstones. Biliary ducts: No biliary dilation. Pancreas: No ductal dilation. Spleen: Size is within normal limits. Adrenal Glands: No adrenal nodules. Kidneys and Ureters: No hydronephrosis. No solid mass. No complex renal cystic lesion which requires follow up. Stomach and Bowel: There is distal gastric wall thickening particularly involving gastric pylorus. Proximal duodenal wall thickening is also seen. Mild fluid filling of the small bowel loops throughout abdomen with wall enhancement and borderline thickening concerning for enteritis. No colonic wall thickening. No abscess collection. Peritoneum: No abnormal intraperitoneal fluid. No free air. Ventral Wall: No significant ventral hernia. Abdominal Nodes: No retroperitoneal or mesenteric adenopathy by size criteria. Vessels: Aorta and inferior vena cava are normal in size. PELVIS: Pelvic Organs: Unremarkable. Bladder: No bladder wall thickening, accounting for underdistention. Pelvic Nodes: No enlarged lymph nodes. Miscellaneous: No inguinal hernias are seen. Bones: No aggressive osseous abnormality. IMPRESSION: 1. Finding is concerning for distal gastritis and enteritis. No evidence of bowel obstruction. No colonic wall thickening. No free fluid or free air. 2. Contracted gallbladder. No calcified gallstones. Questionable gallbladder wall thickening. Early acute cholecystitis cannot be entirely excluded, clinical correlation is recommended. No gross biliary ductal dilatation. 3. Distal esophageal wall thickening suggestive of mild esophagitis. Dictated by: Chau Nuno M.D. on 09/19/2024 at 9:05 Approved by: Chau Nuno M.D. on 09/19/2024 at 9:12
[2024-09-19 08:50] LABS: Add Manual Diff / Slide Review NO; Hematocrit 38.9 % (36-46); Hemoglobin 13.2 g/dL (12.0-16.0); Lymphocytes Absolute Auto 2000 /uL (1100-4500); Mean Corpuscular HGB Conc 33.9 % (30-36); Mean Corpuscular Hemoglobin 31.5 PG (26-34); Mean Corpuscular Volume 92.9 fL (80-100); Platelet Count 313 X10^3/uL (150-400)
[2024-09-19 08:56] LABS: INR 1.0 (0.9-1.3); Prothrombin Time 11.1 SECONDS (9.4-12.5)
[2024-09-19] MEDS: ASPIRIN 81 MG CHEW TAB 324 MG PO (08:56)
[2024-09-19 08:59] LABS: PTT Partial Thromboplastin Tim 32 SECONDS (25.1-36.5)
[2024-09-19 09:00] LABS: Alanine Aminotransferase 23 IU/L (<35); Albumin 4.5 g/dL (3.5-5.0); Albumin Globulin Ratio 1.4 (1.0-2.8); Alkaline Phosphatase 104 U/L (38-126); Blood Urea Nitrogen 14 mg/dL (7-17); Calcium 9.5 mg/dL (8.4-10.2); Carbon Dioxide 23 mmol/L (22-32); Chloride 104 mmol/L (98-107); Creatine Kinase 470 U/L (30-135); Estimated Glomerular Filt Rate > 60 mL/min (>60); Globulin 3.2 g/dL (1.7-4.1); Glucose 107 mg/dL (70-99); HEMOLYSIS < 15 (0-50); Lipase 90 U/L (23-300); Magnesium 2.0 mg/dL (1.6-2.3); Potassium 4.2 mmol/L (3.4-5.1); Sodium 136 mmol/L (137-145); Total Protein 7.7 g/dL (6.3-8.2)
[2024-09-19 09:12] LABS: NT-proBNP (BNP-Adult 18+) 40 pg/mL (<125); Troponin I < 0.012 ng/mL (0.01-0.034)
--- NOTE | 2024-09-19 09:36 | DI.US.S_ITS ---
PROCEDURE: US ABDOMEN LIMITED INDICATIONS: epigastric pain TECHNIQUE: Real-time scanning was performed of the abdominal and retroperitoneal organs, with image documentation. COMPARISON: None. FINDINGS: Liver: Liver is normal in size and homogeneous in echotexture. Gallbladder: There is no gallstones. Borderline gallbladder wall thickening. No pericholecystic fluid. No sonographic Banks's sign. Biliary ducts: Intrahepatic bile ducts are non-dilated. Extrahepatic bile duct caliber measures 3.7 mm. Normal is 6-7 mm or less in diameter, or 10 mm or less post-cholecystectomy. Pancreas: Visualized portions of the pancreas are sonographically normal. Miscellaneous: No free abdominal fluid. IMPRESSION: No gallstones. No sonographic evidence of acute cholecystitis. Questionable gallbladder wall thickening likely due to contraction. No biliary ductal dilatation. Dictated by: Chau Nuno M.D. on 09/19/2024 at 10:25 Approved by: Chau Nuno M.D. on 09/19/2024 at 10:36
[2024-09-19 10:12] VITALS: BP 121/78; PULSE 63; RESP 14; O2SAT 99
[2024-09-19 10:14] VITALS: PULSE 62; RESP 9; O2SAT 98
[2024-09-19 10:30] VITALS: PULSE 55; RESP 12; O2SAT 96
[2024-09-19 11:00] VITALS: PULSE 62; RESP 20; O2SAT 97
[2024-09-19 11:24] LABS: Troponin I < 0.012 ng/mL (0.01-0.034)
[2024-09-19 11:30] VITALS: BP 125/68; PULSE 57; RESP 16; O2SAT 99
[2024-09-19] MEDS: PANTOPRAZOLE DR 20 MG TABLET PO (11:33)
== END 2024-09-19 11:39 | disposition home or self-care (01) ==
PROVIDERS: Emergency Provider Family Medicine; PCP Family Medicine
DX: K29.00 Acute gastritis without bleeding (principal); R07.9 Chest pain, unspecified; R00.1 Bradycardia, unspecified; Z86.79 Personal history of other diseases of the circulatory system; Z80.0 Family history of malignant neoplasm of digestive organs
CPT/HCPCS: 36415; 71045; 74177; 76705; 80053; 82550; 83690; 83735; 83880; 84484; 85025; 85610; 85730; 93005; 93010; 99284; Q9967

== ENCOUNTER → 2024-12-26 11:06 | Outpatient (CLI) | payer OTHER, SELFPAY ==
[2024-12-26 19:14] LABS: Cholesterol 233 mg/dL (140-199); Triglycerides 73 mg/dL (35-150)
[2024-12-26 19:25] LABS: HDL Cholesterol 115 mg/dL (40-60)
== END ==
PROVIDERS: PCP Family Medicine; Visit Provider Family Medicine
DX: Z13.220 Encounter for screening for lipoid disorders (principal)
CPT/HCPCS: 80061